=== PATIENT | male | born 1955 | race Caucasian/White ===

== ENCOUNTER 2017-10-22 15:09 | Emergency (ER) | payer MEDICARE, SELFPAY ==
[2017-10-22 15:11] VITALS: BP 161/112; PULSE 96; RESP 16; TEMP 36.3; O2SAT 98; BMI 31.5
--- NOTE | 2017-10-22 15:44 | RAD_ITS ---
STUDY: X-RAY - RIGHT ANKLE REASON FOR EXAM: Male, 62 years old. Pain, fall TECHNIQUE: 4 view(s) of the ankle. COMPARISON: None. FINDINGS: Normal visualized distal tibia and fibula. Nondisplaced fracture medial malleolus of indeterminate age. No overlying soft tissue swelling. Normal tibiotalar articulation and ankle mortise. Normal visualized talus and calcaneus. The visualized subtalar, talonavicular, calcaneocuboid and tarsal articulations are normal. The soft tissue structures are unremarkable. RAD/Ankle min 3 Views IMPRESSION: Fracture distal tip medial malleolus of indeterminate age. Electronically Signed: Amaury Felder DO at 16:09 EST , Service support ,
--- NOTE | 2017-10-22 15:56 | ED.VISSUMM ---
- ER Visit Summary Date of Service: 10/22/17 Chief Complaint: Complaining of right ankle pain after twisting his ankle coming down steps today. He denies other injuries. History of Present Illness: The patient is a 62 M 3 of alcoholism. Patient is walking up steps today twisted his right ankle. Denies any other injuries. Complaining of right lateral ankle pain. He is able to walk on it. Physical Examination: Middle-aged male no acute distress. Vital signs are stable afebrile. H EENT exam atraumatic. No signs of trauma to his face or scalp. Nontender. C-spine nontender. Trachea midline. Lungs clear to station bilaterally. Heart regular rate and rhythm no murmur. Chest wall nontender. Abdomen soft nontender. Back nontender. Spine nontender. Pelvic girdle intact. He is moving all 4 extremities. Neurovascular intact. Specifically his right hip and knee are nontender neurovascular intact with normal range of motion and no deformity. Right ankle is p.o. P mild swelling the lateral malleolus. There is no gross bony deformity. Achilles tendon is intact. He is able to dorsi plantarflex. His DP pulses intact. Medial malleolus is nontender. Foot is nontender with no deformities or swelling. Able to wiggle his toes. Normal touch sensation. Neurologically is awake and alert. No focal motor deficits. Test Results: Right ankle x-ray 3 views read by myself shows no acute abnormality. No bony fractures or dislocations. I discussed the films with the patient and he does understand that this does not rule out soft tissue injury such as a torn tendon or ligament. Emergency Department Course and Treatment: Treated as an ankle sprain. Ice and elevate. Limited Motrin for pain. Walking boot. Follow-up with orthopedics if not improving. Treatment Plan: Walking boot. Ice and elevate. Orthopedic referral. Disposition: Discharge Impression: Right ankle sprain post fall History of alcohol abuse This note was generated with [employer] dictation software. It may contain incorrect words, spelling, and punctuation that were not noted in review of the chart prior to signing ED Disposition - Plan for ED Patient: Chief Complaint: Lower Extremity Injury Referrals: Care Physician,No Primary [Primary Care Provider] -
--- NOTE | 2017-10-22 15:59 | ED.DEP ---
ED Disposition - Plan for ED Patient: Disposition: Home or Assisted Living Chief Complaint: Lower Extremity Injury Instructions: ED Sprain Ankle W X Ray, ED Alcohol Abuse Referrals: Carlton Rodrigues MD [STAFF PHYSICIAN] - 10-14 Days if not better Additional Instructions: Ice and elevate right ankle. His walking boot to get around. Tylenol and Motrin for pain. Call follow-up with Dr. Zackary Rodrigues if your ankle is not improving for further evaluation. To consider alcohol detox.
[2017-10-22] MEDS: HYDROcodone Bitartrate/Apap 5/325 Tablet PO (16:13)
[2017-10-22 16:14] VITALS: RESP 16
--- NOTE | 2017-10-22 16:14 | ED.RN ---
REVIEWED D/C INSTRUCTIONS, FOLLOW UP CARE, AND S/S THAT WOULD WARRANT A RETURN TO THE ED WITH PT AND HIS . BOTH VERBALIZED AN UNDERSTANDING AND DENY FURTHER QUESTIONS FOR THIS RN. PT SKIN P/W/D, RESP EVEN AND UNLABORED, PT A&O X 3, NO DISTRESS NOTED. PT AMBULATED OUT OF ED WITH .
== END 2017-10-22 16:15 | disposition home or self-care (01) ==
PROVIDERS: Emergency Provider Emergency Medicine
DX: S93.401A Sprain of unspecified ligament of right ankle, initial encounter (principal); X50.1XXA Overexertion from prolonged static or awkward postures, initial encounter; Y93.01 Activity, walking, marching and hiking; Y92.9 Unspecified place or not applicable; F10.10 Alcohol abuse, uncomplicated; Y90.9 Presence of alcohol in blood, level not specified; I25.2 Old myocardial infarction; Z72.0 Tobacco use
CPT/HCPCS: 73610; 99283

== ENCOUNTER 2018-03-10 08:52 | Emergency (ER) | payer MEDICARE, MEDICAID, SELFPAY ==
[2018-03-10 08:53] VITALS: BP 137/91; PULSE 91; RESP 20; TEMP 36.6; O2SAT 98; BMI 30.1
--- NOTE | 2018-03-10 09:01 | RAD_ITS ---
STUDY: X-RAY - LEFT KNEE REASON FOR EXAM: Male, 62 years old. Left knee pain. Status post fall 5 days ago. TECHNIQUE: 4 view(s) of the knee. COMPARISON: None. FINDINGS: There is demineralization of the visualized distal femur. There is demineralization of the tibia and fibula. There is arthrosis of the proximal tibiofibular articulation. There is no demonstrated fracture. There is moderate degenerative arthrosis of the medial femorotibial compartment with moderate joint space narrowing. There is mild degenerative arthrosis of the lateral femorotibial compartment. There is mild degenerative arthrosis of the patellofemoral articulation. There is a soft tissue prominence in the suprapatellar region suggesting a small volume joint effusion. Anteriorly/medially soft tissue swelling of the knee. Vascular calcifications. RAD/Knee 4 or More Views IMPRESSION: 1. No demonstrated acute osseous injury or dislocation. 2. Tricompartment osteoarthritis. 3. Small joint effusion. Mild soft tissue swelling of the knee. Electronically Signed: Benita Griffith MD at 9:43 EDT Tel , Service support ,
--- NOTE | 2018-03-10 09:53 | ED.DCSUM_ITS ---
- ER Visit Summary Date of Service: 03/10/18 Chief Complaint: Left knee pain History of Present Illness: The patient is a 62 M who states that 4 days ago he was wrestling while intoxicated and fell onto his left knee. He states that last night he was drinking and felt the urge to urinate and when he took his pants down he realized that his left knee was swollen. Then this morning he called EMS to bring him to the hospital. He states that he is in severe pain as he laughs and curses at staff. He denies any other injuries. Physical Examination: Afebrile vital signs are stable Gen: Well-nourished well-developed very unkempt Head: Normocephalic atraumatic Eyes: Perrl EOMI ENT: TMs clear no rhinorrhea moist mucous membranes Neck: Supple no lymphadenopathy no JVD nontender CVS: Regular rate rhythm no murmurs normal S1-S2 Respiratory: No distress clear to auscultation bilaterally chest nontender Abdomen: Soft nontender nondistended normal bowel sounds no masses Back: Nontender Extremity: There is ecchymosis over the medial aspect of the distal left thigh and left knee. There is apparent hematoma of the bursa. There is not appear to be a joint effusion. He has full range of motion of the knee. Skin: Normal color no rash Neuro: alert orientated ?3 CN II-XII intact normal strength sensation reflexes antalgic cerebellar Psych: Labile affect Test Results: Knee films did not demonstrate a fracture. Noted soft tissue swelling. Emergency Department Course and Treatment: Kike wrap will be used. I would recommend ice. Follow-up with orthopedics if not improving Impression: 1. Traumatic bursitis left knee This note was generated with [employer] dictation software. It may contain incorrect words, spelling, and punctuation that were not noted in review of the chart prior to signing ED Disposition - Plan for ED Patient: Disposition: Home or Assisted Living Chief Complaint: Lower Extremity Injury Instructions: ED Hematoma Prescriptions: traMADol [Ultram] 50 mg PO Q8H PRN #10 tab PRN Reason: Pain Referrals: Charbel Arambula DO [STAFF PHYSICIAN] - 1 Week if not improving
[2018-03-10 10:13] VITALS: BP 140/78; PULSE 82; RESP 18; TEMP 35.5
== END 2018-03-10 10:25 | disposition home or self-care (01) ==
PROVIDERS: Emergency Provider Emergency Medicine
DX: M71.562 Other bursitis, not elsewhere classified, left knee (principal); Z72.89 Other problems related to lifestyle
CPT/HCPCS: 73564; 99284

== ENCOUNTER 2018-07-22 14:25 | Emergency (ER) | payer MEDICARE, MEDICAID, SELFPAY ==
[2018-07-22 14:28] VITALS: BP 94/72; PULSE 88; RESP 15; TEMP 36.2; O2SAT 95; BMI 30.1
--- NOTE | 2018-07-22 14:46 | ED.RN ---
PT ARRIVED VIA EMS AND [facility]. WHILE GETTING PT UNDRESSED MULTIPLE INSECTS SEEN AND 2 CAUGHT. SOME ARE CONSISTENT WITH BED BUGS. PTS BELONGING BAGGED PER PROTOCOL.
--- NOTE | 2018-07-22 14:52 | ED.VISSUMM ---
- ER Visit Summary Date of Service: 07/22/18 Chief Complaint: Intoxication History of Present Illness: The patient is a 62 M with presumed intoxication. He is mildly agitated and it is difficult to get a good history. He was found in the yard with a bottle of rubbing alcohol. He has a history of alcoholism. When asked him if he has any pain, he points to his penis. He will not elaborate any further. He denies any head or neck pain or injuries. Denies chest pain or shortness of breath. Denies abdominal pain or GI symptoms. He has a history of alcoholic liver disease, depression, anemia, hypertension, COPD. He does smoke. Physical Examination: Blood pressure 94/72. Afebrile and otherwise vitals normal. Head and neck are grossly atraumatic. Moves all extremities. Cranial nerves grossly intact. Skin unremarkable. Heart regular. Lungs clear. Abdomen soft. inspection is normal. Patient is covered in multiple bedbugs. Test Results: We will check basic labs, tox screen, alcohol level. Emergency Department Course and Treatment: I presume that the patient is intoxicated. No evidence of trauma or an acute medical process otherwise. Will observe and check labs. Will reassess. Patient's alcohol level was only 160. His CBC was normal and his metabolic panel was normal. Anion gap normal. I reevaluated the patient. He is somnolent but arouses to painful stimuli. He says he did not take any other substances today. He continues to deny any other complaints. Denies any pain. He is borderline hypotensive but otherwise his vitals are normal. I reexamined him. No new findings. I am not sure what is causing his somnolence. I suspect he may have taken other substances. We will get a tox screen. I will also check a chest x-ray, CT brain, EKG, troponin, ABG, and urinalysis given his altered mental status with no current explanation. I reevaluated the patient. His ABG, EKG, troponin were all normal. I do not have his urine, tox screen, CT, or chest x-ray at this point. He is alert and oriented. He has no complaints. He is requesting to go. I do not feel that further testing is indicated. Patient will be discharged. Treatment Plan: As above Disposition: Discharge Impression: 1. Altered mental status This note was generated with [employer] dictation software. It may contain incorrect words, spelling, and punctuation that were not noted in review of the chart prior to signing ED Disposition - Plan for ED Patient: Chief Complaint: ETOH Intox Referrals: Care Physician,No Primary [Primary Care Provider] -
[2018-07-22 14:54] LABS: Absolute Lymphocyte Count 4.03 X10^3/ul (0.83-4.51); Absolute Neutrophil Count 4.4 X10^3/uL (2.0-7.7); Basophil# 0.07 X10^3/uL; Basophil% 0.8 % (0-1); Eosinophils% 1.1 % (0-5); Hematocrit 40.1 % (40-54); Hemoglobin 13.3 g/dl (13.0-16.5); Lymphocyte # 4.03 X10^3/ul (4.0); Lymphocyte % 43.9 % (19-41); Mean Corp Hgb Conc 33.2 g/gl (32-36); Mean Corpuscular Hgb 29.8 pg (27.0-32.0); Mean Corpuscular Volume 89.9 fL (80-94); Mean Platelet Vol. 10.3 fl (6.2-12.0); Monocyte# 0.55 X10^3/uL; Neutrophil # 4.43 X10^3/uL (2.7-7.7); Neutrophil % 48.1 % (47-70); Platelet Count 270 K/mm3 (150-450); RBC Distribution Width CV 14.5 % (11.6-14.6); RBC Distribution Width SD 47.7 fl (35.1-43.9); Red Blood Count 4.46 M/mm3 (4.6-6.2); White Blood Count 9.2 K/mm3 (4.4-11.0)
[2018-07-22 15:07] LABS: POSITIVE COUNT NO; POSITIVE DIFFERENTIAL NO; POSITIVE MORPHOLOGY NO
[2018-07-22 15:17] VITALS: BP 93/71; PULSE 96; RESP 17; O2SAT 97
--- NOTE | 2018-07-22 15:18 | ED.RN ---
pt unable to answer home medication related questions at this time will re-evaluate at a later time.
[2018-07-22 15:35] LABS: ALB/GLOB Ratio 0.9 RATIO (0.9-2.4); AST(SGOT) 26 U/L (15-37); Alanine Aminotransfer ALT/SGPT 18 U/L (16-61); Albumin, Serum 3.3 g/dL (3.2-5.0); Alkaline Phosphatase 79 U/L (45-117); Anion Gap 11 (5-15); BUN 18 mg/dL (7-18); BUN/Creat Ratio 14.2 RATIO (10-20); Calcium,Total 8.4 mg/dL (8.5-10.1); Chloride 105 mmol/L (98-107); Creatinine, Serum 1.27 mg/dL (0.70-1.30); EST Glomerular Filtration Rate 61 mL/min (>60); Est Glom Filt Rate - Afr Amer 74 mL/min (>60); Estimated Creatinine Clearance 63.07 ml/min; Globulin 3.8 g/dL (2.2-4.2); Glucose 105 mg/dL (74-106); Potassium 3.5 mmol/L (3.5-5.1); Protein, Total 7.1 g/dL (6.4-8.2); Sodium Level 141 mmol/L (136-145)
--- NOTE | 2018-07-22 15:58 | EKG12_ITS ---
Test Reason : INTOX Blood Pressure : / mmHG Vent. Rate : 093 BPM Atrial Rate : 093 BPM P-R Int : 204 ms QRS Dur : 092 ms QT Int : 402 ms P-R-T Axes : 056 -22 009 degrees QTc Int : 499 ms Normal sinus rhythm Prolonged QT Abnormal ECG Confirmed by KIN MARTINEZ, LEANDRA ([id number]), technical editor KANIKA HARE ([id number] on 07/24/2018 3:20:23 PM Referred By: DC Confirmed By:LAENDRA SANDERSON MD
[2018-07-22 16:01] VITALS: BP 96/58; PULSE 87; RESP 14; O2SAT 98
[2018-07-22 16:36] LABS: Allen Test POS; Base Excess 1 mmol/L (-2 to +2); Bicarbonate 25.7 mmol/L (22-26); Blood Gas Specimen Type ART; O2 Delivery Device Room Air; PO2 75 mmHG (75-100); SITE R Radial; SO2 95 % (95-99); Time Given 1629; Total Carbon Dioxide 27 mmol/L; pCO2 42.9 mmHg (35-45); pH 7.39 (7.35-7.45)
[2018-07-22 16:49] LABS: Mucous, Urine 0 SEEN /hpf (<or=2+); Red Blood Cells-Urine 0 SEEN /hpf (0-5); Squamous Epithelial Cells - UA 0 SEEN /hpf (0-5)
[2018-07-22 16:51] LABS: Color, Urine Yellow (Yellow); Glucose, Dipstick Normal (Normal); Ketone-Dipstick 5 mg/dl (Negative); Leukocyte Esterase-Dipstick 100 /ul (Negative); Nitrite-Dipstick Positive (Negative); Occult Blood-Urine Negative /ul (Negative); Protein-Dipstick Negative (Negative); Specific Gravity, Urine 1.015 (1.002-1.030); Urine Bilirubin Dipstick Negative (Negative); Urine Clarity Sl. Cloudy (Clear); Urine Urobilinogen Normal (Normal); Urine pH 6.5 (5.0 - 8.0)
--- NOTE | 2018-07-22 16:51 | ED.DEP ---
ED Disposition - Plan for ED Patient: Chief Complaint: ETOH Intox Instructions: ED Alcohol Intoxication
[2018-07-22 16:57] LABS: Bacteria 2+ /hpf (None Seen); White Blood Cells 0-5 SEEN /hpf (0-5)
[2018-07-22 17:06] LABS: Amphetamine Urine VISTA NEGATIVE (<1000 ng/mL); Barbiturate Urine VISTA NEGATIVE (< 200 ng/mL); Benzodiazepine Urine VISTA NEGATIVE (< 200 ng/mL); Cocaine Urine VISTA NEGATIVE (< 300 ng/mL); Ecstacy Urine VISTA NEGATIVE (< 500 ng/mL); Methadone Urine VISTA NEGATIVE (< 300 ng/mL); PCP Urine VISTA NEGATIVE (< 25 ng/mL); THC Urine VISTA NEGATIVE (< 50 ng/mL); Vista UDS pH Range 6
[2018-07-22 17:12] VITALS: BP 122/71; PULSE 86; RESP 17; O2SAT 98
[2018-07-22 18:04] VITALS: BP 122/72; PULSE 90; RESP 18; O2SAT 97
--- NOTE | 2018-07-22 18:04 | ED.RN ---
PT DRESSES SELF AND IS GIVEN WRITTEN AND VERBAL DISCHARGE INSTRUCTIONS. PT ABLE TO GIVE ADDRESS TO CALL FOR A RIDE. CAB CALLED, AND SHOULD BE PRESENT TO ED IN AN HOUR. PT IV D/C AND COVERED WITH 2X2 GAUZE DRESSING AND PAPER TAPE. PT AMBULATES OUT OF DEPT BY SELF.
--- OUTSIDE RECORDS SUMMARY | 2018-09-14 23:55 | XMS RPT_ITS ---
:1955 Author Organization [facility] Care Team Providers Name Role Phone Primay Care Physicia, No Primary Care Unavailable oYvanny Frey Attending Unavailable Primay Care Physicia, No Primary Care Unavailable Scott Michael Attending Unavailable Primay Care Physicia, No Primary Care Unavailable Scott Farnsworth Attending Unavailable PROBLEMS PROBLEMS DATE TYPE CONDITION / CODE ATTENDING STATUS SOURCE 04/15/2018 Unknown M25.562 - Pain Scott Michael Active [facility] left knee / Community M25.562(ICD-10) Hospital Repository 05/25/2018 Unknown M25.571 - Pain Yovanny Frey Active [facility] in right ankle [facility] right foot / Repository M25.571(ICD-10) PROCEDURES PROCEDURES No Procedure Records FoundRESULTS RESULTS 12 LEAD ELECTROCARDIOGRAM Observed: 07/24/2018 Status: F Source: ANNE-MARIE 3:20 PM [facility] RE[facility] Cardiovascular Services [address] [place] [address] 12 Lead EKG 07/22/18 1637 MR#: [id number] Acct: [id number] Name: DORA SIFUENTES Rep #: [id number] : 1955 62 From: Gaurav Sanderson MD Attending Dr: Status: DEP ER Ordering Dr: Scott Farnsworth MD Date: 07/22/18 Location: ED Sex: M C Admitted: Test Reason : INTOX Blood Pressure : / mmHG Vent. Rate : 093 BPM Atrial Rate : 093 BPM P-R Int : 204 ms QRS Dur : 092 ms QT Int : 402 ms P-R-T Axes : 056 -22 009 degrees QTc Int : 499 ms Normal sinus rhythm Prolonged QT Abnormal ECG Confirmed by KIN MARTINEZ, GAURAV ([id number]), art editor KANIKA HARE ([id number]) on 07/24/2018 3:20:23 PM Referred By: DC Confirmed By:GAURAV SANDERSON MD 07/24/18 1520 Date Gaurav Sanderson MD CC: No Primary Care Physician; Scott Farnsworth MD Signed DISCHARGE INSTRUCTION Observed: 07/22/2018 Status: F Source: ANNE-MARIE 4:54 PM [facility] REPOSITORY [facility] Medical Records Department [address] [place] [address] Discharge Instruction 07/22/18 165 MR#: [id number] Acct: [id number] Name: MARIADORA POLLARD Rep #: [id number] : 1955 62 From: Scott Farnsworth MD PCP: Care Physician, No Primary Status: REG ER ED Disposition - Plan for ED Patient: Chief Complaint: ETOH Intox Instructions: ED Alcohol Intoxication What to do if you have Problems For any increased pain, shortness of breath, bleeding, nausea or vomiting, chest pain, or any unexpected problems, contact your Primary Care Provider. Call [facility] ([phone]) or report to the closest Emergency Room. Call 911 if necessary. 07/22/181653 <Electronically signed by Scott Farnsworth MD> Date Scott Farnsworth MD Cosigner Signature (If Indicated): Date CC: No Primary Care Physician EMERGENCY DEPARTMENT Observed: 07/22/2018 Status: F Source: ANNE-MARIE SUMMARY 4:54 PM [facility] Medical Records Department [address] [place] [address] Emergency Department Summary 07/22/18 1452 MR#: [id number] Acct: [id number] Name: DORA SIFUENTES Rep #: [id number] : 1955 62 From: Scott Farnsworth MD PCP: Care Physician, No Primary Status: REG ER - ER Visit Summary Date of Service: 07/22/18 Chief Complaint: Intoxication History of Present Illness: The patient is a 62 M with presumed intoxication. He is mildly agitated and it is difficult to get a good history. He was found in the yard with a bottle of rubbing alcohol. He has a history of alcoholism. When asked him if he has any pain, he points to his penis. He will not elaborate any further. He denies any head or neck pain or injuries. Denies chest pain or shortness of breath. Denies abdominal pain or GI symptoms. He has a history of alcoholic liver disease, depression, anemia, hypertension, COPD. He does smoke. Physical Examination: Blood pressure 94/72. Afebrile and otherwise vitals normal. Head and neck are grossly atraumatic. Moves all extremities. Cranial nerves grossly intact. Skin unremarkable. Heart regular. Lungs clear. Abdomen soft. inspection is normal. Patient is covered in multiple bedbugs. Test Results: We will check basic labs, tox screen, alcohol level. Emergency Department Course and Treatment: I presume that the patient is intoxicated. No evidence of trauma or an acute medical process otherwise. Will observe and check labs. Will reassess. Patient's alcohol level was only 160. His CBC was normal and his metabolic panel was normal. Anion gap normal. I reevaluated the patient. He is somnolent but arouses to painful stimuli. He says he did not take any other substances today. He continues to deny any other complaints. Denies any pain. He is borderline hypotensive but otherwise his vitals are normal. I reexamined him. No new findings. I am not sure what is causing his somnolence. I suspect he may have taken other substances. We will get a tox screen. I will also check a chest x-ray, CT brain, EKG, troponin, ABG, and urinalysis given his altered mental status with no current explanation. I reevaluated the patient. His ABG, EKG, troponin were all normal. I do not have his urine, tox screen, CT, or chest x-ray at this point. He is alert and oriented. He has no complaints. He is requesting to go. I do not feel that further testing is indicated. Patient will be discharged. Treatment Plan: As above Disposition: Discharge Impression: 1. Altered mental status This note was generated with i[employer] CRM dictation software. It may contain incorrect words, spelling, and punctuation that were not noted in review of the chart prior to signing ED Disposition - Plan for ED Patient: Chief Complaint: ETOH Intox Referrals: Care Physician,No Primary [Primary Care Provider] - What to do if you have Problems For any increased pain, shortness of breath, bleeding, nausea or vomiting, chest pain, or any unexpected problems, contact your Primary Care Provider. Call [facility] ([phone]) or report to the closest Emergency Room. Call 911 if necessary. 07/22/18 9984 <Electronically signed by Scott Farnsworth MD> Date Scott Farnsworth MD Cosigner Signature (If Indicated): Date CC: No Primary Care Physician URINE DRUG SCREEN Collected: 07/22/2018 Status: F Source: ANNE-MARIE (VISTA) 4:45 PM [facility] REPOSITORY TYPE CODE TESTS RESULT OUT OF RANGE REFERENCE UNITS LAB L505.0075 TO BE Normal CONFIRMED Result Comment: CONFIRMATORY TESTING FOR ALL POSITIVE URINE DRUG SCREEN RESULTS WILL ONLY BE SENT OUT UPON PHYSICIAN ORDER. VISTA Urine Drug Screen methods provide only preliminary analytical test results. A more specific alternate chemical method must be used in order to obtain a confirmed analytical result. Gas chromatography/mass spectrometery (GC/MS) is the preferred confirmatory method. Clinical consideration and professional judgement should be applied to any drug of abuse test result, particularly when preliminary positive results are used. URINE TCA TESTING MUST BE ORDERED SEPARATELY. USE TEST MNEMONIC: [facility] LAB L505.5005 VISTA UDS PH 6 Normal LAB L505.5015 <1000 ng/mL AMPHETAMINES Normal NEGATIVE LAB L505.5025 < 200 ng/mL BARBITIURATES Normal NEGATIVE LAB L505.5035 < 200 ng/mL BENZODIAZIPINE Normal NEGATIVE LAB L505.5045 < 300 ng/mL COCAINE Normal NEGATIVE LAB L505.5055 < 500 ng/mL ECSTACY Normal NEGATIVE LAB L505.5065 < 300 ng/mL METHADONE Normal NEGATIVE LAB L505.5075 < 300 ng/mL OPIATES Normal NEGATIVE LAB L505.5085 < 25 ng/mL PCP Normal NEGATIVE LAB L505.5095 < 50 ng/mL THC Normal NEGATIVE Performed By: #### L505.5000 #### [facility] [address] [place], [address] URINALYSIS, COMPLETE Collected: 07/22/2018 Status: F Source: MUDDY 4:45 PM [facility] REPOSITORY Order Comment: How was Urine Obtained? HEATER PLANER OPERATOR TO SPECIFY TYPE CODE TESTS RESULT OUT OF RANGE REFERENCE UNITS LAB L400.3000 Yellow COLOR Normal Yellow LAB L400.3050 Clear Normal CLARITY Sl. Cloudy LAB L400.3200 Normal mg/dl Normal GLUCOSE, UR Normal LAB L400.3300 Negative mg/dL Normal BILIRUBIN URINE Negative LAB L400.3400 Negative mg/dl High 5 KETONE UR LAB L400.3465 1.002-1.030 Normal SP.GR. DIPSTX 1.015 LAB L400.3550 5.0 - 8.0 pH UR Normal 6.5 LAB L400.3600 Negative mg/dl PROT Normal DIPSTX Negative LAB L400.3700 Normal mg/dl Normal UROBILI Normal LAB L400.3750 Negative High NITRITE UR Positive LAB L400.3780 Negative /ul Normal OCCULT BLOOD-UR Negative LAB L400.3800 Negative /ul High LEUK ESTERASE 100 LAB L400.4050 0-5 /hpf WBC Normal 0-5 SEEN LAB L400.4100 0-5 /hpf 0 Normal RBC-UA SEEN LAB L400.4150 0-5 /hpf SQUAM 0 Normal EPI SEEN LAB L400.4300 None Seen /hpf 2+ Normal BACTERIA LAB L400.4350 <or=2+ /hpf 0 Normal MUCUS, URINE SEEN Performed By: #### L400.0001 #### [facility] [address] [place], [place], [address] BLOOD GASES BY CPS Collected: 07/22/2018 Status: F Source: MUDDY 4:29 PM [facility]POS[facility] TYPE CODE TESTS RESULT OUT OF RANGE REFERENCE UNITS LAB L9000.9990 Normal BLD GAS TYPE ART LAB L9001.1000 Normal SITE R Radial LAB L9001.1010 Normal NENA TEST POS LAB L9001.1050 O2 Normal Delivery Dev Room Air LAB L9001.1104 Normal Results To ED MD LAB L9001.1105 Normal Time Given 1629 LAB L9001.1110 7.35-7.45 pH Normal - I-STAT 7.39 LAB L9001.1210 35-45 mmHg Normal pCO2 - ISTAT 42.9 LAB L9001.1310 75-100 mmHG Normal PO2 I-STAT 75 LAB L9001.2300 22-26 mmol/L Normal HCO3 ISTAT 25.7 LAB L9001.2400 -2 to +2 mmol/L BE Normal ISTAT 1 LAB L9001.2415 mmol/L Normal TOTAL CO2 27 ISTAT LAB L9001.2425 95-99 % Normal SO2 ISTAT 95 Performed By: #### L9000.0800 #### [facility] Point of Care [address] [place] [address] CBC W/DIFF, AUTOMATED Collected: 07/22/2018 Status: F Source: MUDDY 2:34 PM [facility]POS[facility] TYPE CODE TESTS RESULT OUT OF RANGE REFERENCE UNITS LAB L100.1000 4.4-11.0 K/mm3 Normal WBC 9.2 LAB L100.1200 4.6-6.2 M/mm3 Low RBC 4.46 LAB L100.1300 13.0-16.5 g/dl Normal HGB 13.3 LAB L100.1400 40-54 % Normal HCT 40.1 LAB L100.1500 80-94 fL Normal MCV 89.9 LAB L100.1600 27.0-32.0 pg Normal MCH 29.8 LAB L100.1700 32-36 g/gl Normal MCHC 33.2 LAB L100.1810 11.6-14.6 % Normal RDW CV 14.5 LAB L100.1820 35.1-43.9 fl High RDW SD 47.7 LAB L100.1900 150-450 K/mm3 Normal PLT 270 LAB L100.2000 6.2-12.0 fl Normal MPV 10.3 LAB L100.2100 47-70 % Normal NEUT% 48.1 LAB L100.2200 19-41 % High LY% 43.9 LAB L100.2300 0-10 % Normal MONO% 6.0 LAB L100.2400 0-5 % Normal EO% 1.1 LAB L100.2500 0-1 % Normal BASO% 0.8 LAB L100.2550 0.0-0.9 % Normal IM GRAN % 0.100 Result Comment: IG% - Immature Granulocytes (promyelocytes, myelocytes and metamyelocytes) > 1% indicates that a LEFT SHIFT is Present. LAB L100.2620 2.0-7.7 X10 3/uL Normal Absolute Neut 4.4 LAB L100.2720 0.83-4.51 X10 3/ul Normal Absolute Lymph 4.03 Performed By: #### L100.0100 #### [facility] [address] [facility] [address] ALCOHOL, BLOOD Collected: 07/22/2018 Status: F Source: MUDDY (MEDICAL)-SERUM 2:34 PM [facility]POSITORY TYPE CODE TESTS RESULT OUT OF RANGE REFERENCE UNITS LAB L501.9100 mg/dL Normal SERUM 160.0 ETOH Result Comment: The serum:whole blood ethanol ratio is approximately 1.14 and varies slightly with hematocrit. Medical Alcohol reference interval and critical value in non-tolerant individuals; 50 - 100 Impairment 100 Intoxication 100 - 250 Severe Poisoning 250 - 400 Deep/possible fatal coma Performed By: #### L501.9100 #### [facility] [address] [place], [address] COMPREHENSIVE METABOLIC Collected: 07/22/2018 Status: F Source: MUDDY PROFIL 2:34 PM [facility] REPOSITORY TYPE CODE TESTS RESULT OUT OF RANGE REFERENCE UNITS LAB L501.0100 74-106 mg/dL Normal GLU 105 Result Comment: Fasting Glucose result from 100 to 125 mg/dL suggests IMPAIRED HOMEOSTASIS per A.D.A. criteria. Please note revised GLUCOSE reference range effective 2017. LAB L501.1000 7-18 mg/dL Normal BUN 18 LAB L501.1100 0.70-1.30 mg/dL Normal CREAT,SERUM 1.27 Result Comment: The validity of the calculated GFR AND GFRAA in patients over 70 years has not been determined. Clinical correlation is essential. LAB L501.1110 >60 mL/min Normal EST GFR 61 Result Comment: Non- GFR Calc LAB L501.1115 >60 mL/min Normal EST GFR - AA 74 Result Comment: GFR Calc LAB L501.1255 ml/min Normal Estimated CRCL 63.07 LAB L501.1300 10-20 RATIO Normal BUN/CRE 14.2 LAB L501.1500 6.4-8. g/dL Normal 2 T PROT 7.1 LAB L501.1800 3.2-5. g/dL Normal 0 ALB 3.3 LAB L501.1950 2.2-4. g/dL Normal 2 GLOB 3.8 LAB L501.2000 0.9-2. RATIO Normal 4 A/G 0.9 LAB L501.2200 8.5-10 mg/dL Low .1 CA 8.4 LAB L501.4100 15-37 U/L Normal AST 26 LAB L501.4305 45-117 U/L Normal ALK P 79 LAB L501.4405 16-61 U/L Normal ALT 18 LAB L501.4600 0.20-1 mg/dL Normal .00 T BILI 0.40 LAB L501.5300 136-14 mmol/L Normal 5 NA 141 LAB L501.5600 3.5-5. mmol/L Normal 1 K 3.5 LAB L501.5900 98-107 mmol/L Normal CL 105 LAB L501.6100 21.0-3 mmol/L Normal 2.0 CO2 25.0 LAB L501.6200 5-15 Normal GAP 11 Performed By: #### L500.4050 #### [facility] [address] [place], [address] TROPONIN-I Collected: 07/22/2018 Status: F Source: ANNE-MARIE 2:34 PM [facility]POSITORY TYPE CODE TESTS RESULT OUT OF RANGE REFERENCE UNITS LAB L501.4010 <0.045 ng/mL Normal < 0.015 TROPONIN-I Result Comment: TROPONIN-I EXPECTED VALUES <0.045 Negative 0.045 - 0.590 Consistent with Cardiac Damage > OR = 0.600 Critical Value Not every elevated troponin is indicative of LA. These values should be used with clinical judgement in examining the patient's clinical picture for diagnosis. To establish a diagnosis of LA versus myocardial injury, there must be a demonstrated rise and/or fall in the troponin values, in addition to ischemic symptoms, EKG changes, new regional wall motion abnormality, and/or angiographical evidence. PLEASE NOTE: REFERENCE RANGES EDITED 18 Performed By: #### L501.4010 #### [facility] [address] [facility] [place], [address] EMERGENCY DEPARTMENT Observed: 03/11/2018 Status: F Source: MUDDY SUMMARY 8:22 AM [facility] Medical Records Department [address] [facility] [place] [address] Emergency Department Summary 03/10/18 0944 MR#: [id number] Acct: [id number] Name: DORA SIFUENTES Rep #: [id number] : 1955 62 From: Scott Michael DO PCP: Care Physician, No Primary Status: DEP ER - ER Visit Summary Date of Service: 03/10/18 Chief Complaint: Left knee pain History of Present Illness: The patient is a 62 M who states that 4 days ago he was wrestling while intoxicated and fell onto his left knee. He states that last night he was drinking and felt the urge to urinate and when he took his pants down he realized that his left knee was swollen. Then this morning he called EMS to bring him to the hospital. He states that he is in severe pain as he laughs and curses at staff. He denies any other injuries. Physical Examination: Afebrile vital signs are stable Gen: Well-nourished well-developed very unkempt Head: Normocephalic atraumatic Eyes: Perrl EOMI ENT: TMs clear no rhinorrhea moist mucous membranes Neck: Supple no lymphadenopathy no JVD nontender CVS: Regular rate rhythm no murmurs normal S1-S2 Respiratory: No distress clear to auscultation bilaterally chest nontender Abdomen: Soft nontender nondistended normal bowel sounds no masses Back: Nontender Extremity: There is ecchymosis over the medial aspect of the distal left thigh and left knee. There is apparent hematoma of the bursa. There is not appear to be a joint effusion. He has full range of motion of the knee. Skin: Normal color no rash Neuro: alert orientated 3 CN II-XII intact normal strength sensation reflexes antalgic cerebellar Psych: Labile affect Test Results: Knee films did not demonstrate a fracture. Noted soft tissue swelling. Emergency Department Course and Treatment: Kike wrap will be used. I would recommend ice. Follow-up with orthopedics if not improving Impression: 1. Traumatic bursitis left knee This note was generated with i[employer] CRM dictation software. It may contain incorrect words, spelling, and punctuation that were not noted in review of the chart prior to signing ED Disposition - Plan for ED Patient: Disposition: Home or Assisted Living Chief Complaint: Lower Extremity Injury Instructions: ED Hematoma Prescriptions: traMADol [Ultram] 50 mg PO Q8H PRN #10 tab PRN Reason: Pain Referrals: Charbel Arambula DO [STAFF PHYSICIAN] - 1 Week if not improving What to do if you have Problems For any increased pain, shortness of breath, bleeding, nausea or vomiting, chest pain, or any unexpected problems, contact your Primary Care Provider. Call [facility] ([phone]) or report to the closest Emergency Room. Call 911 if necessary. 03/11/18 08 <Electronically signed by Scott Michael DO> Date Scott Michael DO Cosigner Signature (If Indicated): Date CC: No Primary Care Physician KNEE 4 OR MORE Observed: 03/10/2018 Status: F Source: ANNE-MARIE PEARL 9:01 AM [facility] Imaging Services [address] [place] [address] Knee 4 or More Views MR#: [id number] Acct: [id number] Name: DORA SIFUENTES Rep #: [id number] : 1955 M 62 From: Camron Griffith PCP: Care Physician, No Primary Status: REG ER Study: Knee 4 or More Views Date of Exam: 03/10/18 Exam# [id number] Ordering Dr: Scott Michael DO STUDY: X-RAY - LEFT KNEE REASON FOR EXAM: Male, 62 years old. Left knee pain. Status post fall 5 days ago. TECHNIQUE: 4 view(s) of the knee. COMPARISON: None. FINDINGS: There is demineralization of the visualized distal femur. There is demineralization of the tibia and fibula. There is arthrosis of the proximal tibiofibular articulation. There is no demonstrated fracture. There is moderate degenerative arthrosis of the medial femorotibial compartment with moderate joint space narrowing. There is mild degenerative arthrosis of the lateral femorotibial compartment. There is mild degenerative arthrosis of the patellofemoral articulation. There is a soft tissue prominence in the suprapatellar region suggesting a small volume joint effusion. Anteriorly/medially soft tissue swelling of the knee. Vascular calcifications. RAD/Knee 4 or More Views IMPRESSION: 1. No demonstrated acute osseous injury or dislocation. 2. Tricompartment osteoarthritis. 3. Small joint effusion. Mild soft tissue swelling of the knee. Electronically Signed: Benita Griffith MD at 9:43 EDT Tel , Service support , CC: No Primary Care Physician; Scott Michael DO Speed Belt Sander Tender: Signed EMERGENCY DEPARTMENT Observed: 10/22/2017 Status: F Source: MUDDY SUMMARY 10:57 PM [facility] Medical Records Department [address] [place] [address] Emergency Department Summary 10/22/17 1556 MR#: [id number] Acct: [id number] Name: DORA SIFUENTES Rep #: [id number] : 1955 62 From: Yovanny Frey MD PCP: Care Physician, No Primary Status: DEP ER - ER Visit Summary Date of Service: 10/22/17 Chief Complaint: Complaining of right ankle pain after twisting his ankle coming down steps today. He denies other injuries. History of Present Illness: The patient is a 62 M 3 of alcoholism. Patient is walking up steps today twisted his right ankle. Denies any other injuries. Complaining of right lateral ankle pain. He is able to walk on it. Physical Examination: Middle-aged male no acute distress. Vital signs are stable afebrile. H EENT exam atraumatic. No signs of trauma to his face or scalp. Nontender. C-spine nontender. Trachea midline. Lungs clear to station bilaterally. Heart regular rate and rhythm no murmur. Chest wall nontender. Abdomen soft nontender. Back nontender. Spine nontender. Pelvic girdle intact. He is moving all 4 extremities. Neurovascular intact. Specifically his right hip and knee are nontender neurovascular intact with normal range of motion and no deformity. Right ankle is p.o. P mild swelling the lateral malleolus. There is no gross bony deformity. Achilles tendon is intact. He is able to dorsi plantarflex. His DP pulses intact. Medial malleolus is nontender. Foot is nontender with no deformities or swelling. Able to wiggle his toes. Normal touch sensation. Neurologically is awake and alert. No focal motor deficits. Test Results: Right ankle x-ray 3 views read by myself shows no acute abnormality. No bony fractures or dislocations. I discussed the films with the patient and he does understand that this does not rule out soft tissue injury such as a torn tendon or ligament. Emergency Department Course and Treatment: Treated as an ankle sprain. Ice and elevate. Limited Motrin for pain. Walking boot. Follow-up with orthopedics if not improving. Treatment Plan: Walking boot. Ice and elevate. Orthopedic referral. Disposition: Discharge Impression: Right ankle sprain post fall History of alcohol abuse This note was generated with Dragon dictation software. It may contain incorrect words, spelling, and punctuation that were not noted in review of the chart prior to signing ED Disposition - Plan for ED Patient: Chief Complaint: Lower Extremity Injury Referrals: Care Physician,No Primary [Primary Care Provider] - What to do if you have Problems For any increased pain, shortness of breath, bleeding, nausea or vomiting, chest pain, or any unexpected problems, contact your Primary Care Provider. Call [facility] ([phone]) or report to the closest Emergency Room. Call 911 if necessary. 10/22/172256 <Electronically signed by Yovanny Frey MD> Date Yovanny Frey MD Cosigner Signature (If Indicated): Date CC: No Primary Care Physician DISCHARGE INSTRUCTION Observed: 10/22/2017 Status: F Source: MUDDY 10:57 PM [facility] Medical Records Department [address] [place] [address] Discharge Instruction 10/22/17 1559 MR#: [id number] Acct: [id number] Name: DORA SIFUENTES Rep #: [id number] : 1955 62 From: Yovanny Frey MD PCP: Care Physician, No Primary Status: [facility] [place] [facility] ED Disposition - Plan for ED Patient: Disposition: Home or Assisted Living Chief Complaint: Lower Extremity Injury Instructions: ED Sprain Ankle W X Ray, ED Alcohol Abuse Referrals: Carlton Rodrigues MD [STAFF PHYSICIAN] - 10-14 Days if not better Additional Instructions: Ice and elevate right ankle. His walking boot to get around. Tylenol and Motrin for pain. Call follow-up with Dr. Zackary Rodrigues if your ankle is not improving for further evaluation. To consider alcohol detox. What to do if you have Problems For any increased pain, shortness of breath, bleeding, nausea or vomiting, chest pain, or any unexpected problems, contact your Primary Care Provider. Call [facility] ([phone]) or report to the closest Emergency Room. Call 911 if necessary. 10/22/17 2254 <Electronically signed by Yovanny Frey MD> Date Yovanny Frey MD Cosigner Signature (If Indicated): Date CC: No Primary Care Physician ANKLE MIN 3 VIEWS Observed: 10/22/2017 Status: F Source: MUDDY 3:44 PM [facility] Imaging Services [address] [place] [address] Ankle min 3 Views MR#: [id number] Acct: [id number] Name: DORA SIFUENTES Rep #: [id number] : 1955 M 62 From: Amaury Felder PCP: Care Physician, No Primary Status: REG ER Study: Ankle min 3 Views Date of Exam: 10/22/17 Exam# [id number] Ordering Dr: Yovanny Frey MD STUDY: X-RAY - RIGHT ANKLE REASON FOR EXAM: Male, 62 years old. Pain, fall TECHNIQUE: 4 view(s) of the ankle. COMPARISON: None. FINDINGS: Normal visualized distal tibia and fibula. Nondisplaced fracture medial malleolus of indeterminate age. No overlying soft tissue swelling. Normal tibiotalar articulation and ankle mortise. Normal visualized talus and calcaneus. The visualized subtalar, talonavicular, calcaneocuboid and tarsal articulations are normal. The soft tissue structures are unremarkable. RAD/Ankle min 3 Views IMPRESSION: Fracture distal tip medial malleolus of indeterminate age. Electronically Signed: Amauryjohn FelderDO at 16:09 EST , Service support , CC: No Primary Care Physician; Yovanny Frey MD Speed Belt Sander Tender: Signed ALLERGIES ALLERGIES DATE TYPE / CODE NAME / CODE REACTION SEVERITY SOURCE 05/30/2017 Drug codeine/F006 [facility] [id number]([place] [id number]([facility]) Repository CT) 05/30/2017 Drug aspirin/F006 Nausea/Vom/Diarr Unknown [facility] Allergy/4160 [id number]([place] [address]([facility]) Repository CT) ENCOUNTERS ENCOUNTERS ADMIT/DISCHARGE ACCOUNT ADMITTING ENCOUNTER LOCATION SOURCE NUMBER CLASS 07/22/2018/ [id number] Emergency [address] ing:ED Repository 03/10/2018/ [id number] Emergency [address] ing:ED Repository 10/22/2017/ [id number] Emergency [address] ing:ED Repository PAYERS PAYERS ENCOUNTER GUARANTOR PAYER SUBSCRIBER SOURCE 07/22/2018 DORA SENIOR [facility] DORA Matthews [place] [address], Insurance:MEDICARE [facility]: Critical access hospital [id number]: PART A [facility] [id number] Hospital Number: Repository () [id number] Date:2018-07-22 07/22/2018 Secondary DORA M [place] [facility] Number: [id number] Hospital [id number] Repository Date:2018-07-22 07/22/2018 Tertiary NOT GIVENUNK Anne[place]Marie Insurance:SELF PAY [facility] Number: Effective Repository Date:2018-07-22 03/10/2018 DORA SENIOR Primary DORA Matthews [place] [address], Insurance[id number] [id number]: PART A [facility] [id number] Hospital Number: Repository () [id number] Date:2018-03-10 03/10/2018 Secondary DORA Xie Insurance:MEDICAIDPol LEDFORDDOB: Community [place] Number: [id number] Hospital [id number] Repository Date:2018-03-10 03/10/2018 Tertiary NOT GIVENUNK Anne-Marie Insurance:SELF PAY [facility] Number: Effective Repository Date:2018-03-10 10/22/2017 DORA SIFUENTESPO Primary DORA Xie [address], Insurance:MEDICARE [place]: [place] [address]Rzs: PART A BPolicy [id number] Hospital Number: Repository () [id number] Date:2017-10-22 10/22/2017 Secondary NOT GIVENUNK [place] Insurance:SELF PAY [facility] Number: Effective Repository Date:2017-10-22
== END 2018-07-22 18:06 | disposition home or self-care (01) ==
PROVIDERS: Emergency Provider Emergency Medicine
DX: R41.82 Altered mental status, unspecified (principal); F10.229 Alcohol dependence with intoxication, unspecified; Y90.9 Presence of alcohol in blood, level not specified; K70.9 Alcoholic liver disease, unspecified; F32.9 Major depressive disorder, single episode, unspecified; D64.9 Anemia, unspecified; I10 Essential (primary) hypertension; J44.9 Chronic obstructive pulmonary disease, unspecified; Z72.0 Tobacco use
CPT/HCPCS: 36600; 80053; 80307; 80320; 81001; 82803; 84484; 85025; 93005; 99285; A4216; G0480

== ENCOUNTER 2018-09-25 11:50 | Emergency (ER) | payer MEDICARE, MEDICAID, SELFPAY ==
[2018-09-25 11:51] VITALS: BP 139/108; PULSE 102; RESP 18; TEMP 36.6; O2SAT 98; BMI 29.2
--- NOTE | 2018-09-25 12:14 | CT_ITS ---
STUDY: CT ABDOMEN AND PELVIS WITHOUT CONTRAST REASON FOR EXAM: Male, 63 years old. Scrotal pain. Ethanol abuse. RADIATION DOSAGE (If Supplied By Facility): CTDIvol = ( 12.95 ) mGy, DLP = ( 643.69 ) mGycm TECHNIQUE: Transaxial images were obtained from the dome of the diaphragm to the symphysis pubis without oral contrast, and without intravenous contrast. Sagittal and coronal images were reconstructed. Individualized dose optimization techniques were used for this CT. COMPARISON: Comparison is made with prior study dated January 31, 2013. FINDINGS: The visualized lung bases are unremarkable. Healed left rib fractures. The visualized portions of the heart are within normal limits. Normal liver. Normal gallbladder and extrahepatic biliary system. Normal spleen. Normal pancreas. Normal bilateral adrenal glands. Normal right kidney. Normal left kidney. There is a small hiatal hernia. Normal small intestine. There is diverticulosis, with thickening of the colon wall, and pericolonic inflammation changes consistent with acute diverticulitis. Radiographic follow-up is recommended to rule out possible underlying mass. The appendix is visualized and appears normal. There is diffuse atherosclerotic calcification of the abdominal aorta, without a demonstrated aneurysm. Normal inferior vena cava. Normal retroperitoneum. Normal urinary bladder. There are prostatic calcifications. Small bilateral benign-appearing inguinal lymph nodes. Normal abdominal wall. There are mild degenerative changes of the visualized lumbar spine. CT/Abdomen/Pelvis without Cont IMPRESSION: Findings suggestive of a noncomplicated acute sigmoid diverticulitis with increased markings and thickening in the region of the sigmoid colon. Radiographic follow-up is recommended. Electronically Signed: Lan Groves MD at 13:38 EST , Service support ,
[2018-09-25 12:16] VITALS: BP 131/115; PULSE 95; RESP 16; O2SAT 96
--- NOTE | 2018-09-25 12:25 | ED.RN ---
pt arrived to ed stating i drank a lot to kill the pain. pt has hx of aggression and verbal abuse towards staff. pt was escorted by security in the department. pt placed in the bed and a detailed explanation of plan of care was given. dr arrived and had an at length discussion of plan of care with pt as well. pt is currently resting in bed and cooperating. mykel soto, rn [phone]
--- NOTE | 2018-09-25 12:30 | ED.RN ---
pt very verbally abusive in triage. pt yelled at this rn and came up out of the chair. pt backed down. became aggressive a second time. agrees to drinking large amount of etoh. security called
[2018-09-25 12:44] LABS: Absolute Lymphocyte Count 2.26 X10^3/ul (0.83-4.51); Basophil# 0.05 X10^3/uL; Basophil% 0.6 % (0-1); Eosinophil# 0.08 X10^3/uL; Hematocrit 40.6 % (40-54); Hemoglobin 13.3 g/dl (13.0-16.5); Lymphocyte # 2.26 X10^3/ul (4.0); Lymphocyte % 27.9 % (19-41); Mean Corp Hgb Conc 32.8 g/gl (32-36); Mean Corpuscular Volume 88.5 fL (80-94); Monocyte# 0.69 X10^3/uL; Monocyte% 8.5 % (0-10); Neutrophil % 61.8 % (47-70); Platelet Count 234 K/mm3 (150-450); RBC Distribution Width CV 15.9 % (11.6-14.6); RBC Distribution Width SD 51.5 fl (35.1-43.9); Red Blood Count 4.59 M/mm3 (4.6-6.2); White Blood Count 8.1 K/mm3 (4.4-11.0)
[2018-09-25 12:45] LABS: POSITIVE COUNT NO; POSITIVE DIFFERENTIAL NO; POSITIVE MORPHOLOGY NO
[2018-09-25 12:56] LABS: Anion Gap 9 (5-15); BUN 12 mg/dL (7-18); BUN/Creat Ratio 11.2 RATIO (10-20); Calcium,Total 8.1 mg/dL (8.5-10.1); Chloride 108 mmol/L (98-107); Creatinine, Serum 1.07 mg/dL (0.70-1.30); EST Glomerular Filtration Rate 74 mL/min (>60); Est Glom Filt Rate - Afr Amer 90 mL/min (>60); Estimated Creatinine Clearance 76.24 ml/min; Glucose 82 mg/dL (74-106); Potassium 3.3 mmol/L (3.5-5.1); Sodium Level 142 mmol/L (136-145)
[2018-09-25 13:11] LABS: Lactic Acid 1.7 mmol/L (0.4-2.0)
--- NOTE | 2018-09-25 14:01 | ED.DCSUM_ITS ---
- ER Visit Summary Date of Service: 09/25/18 Chief Complaint: [Abdominal pain] History of Present Illness: The patient is a 63 M [resents the emergency room with complaint of abdominal pain that started over a month ago. Patient states that he could not take the pain anymore despite drinking heavily. Patient comes in via EMS for evaluation. Patient believes that he may have a hernia as his pain is in the left lower quadrant and has pain radiating towards the testicle at times. He has had no fever. He has had not had any vomiting. Patient states he has no medical history and does not take any medications. He does not have a primary care physician.] Physical Examination: [HEENT-PERRLA, EOMI. Cranial nerves II through XII grossly intact. TMs clear. Mucous membranes moist. No adenopathy. Cardiovascular-regular rate and rhythm without murmur or ectopy Lungs-clear to auscultation, chest wall stable without crepitus or subcu emphysema Abdomen-normoactive bowel sounds, soft. Patient has tenderness palpation over left lower quadrant with some guarding. There is no rebound, rigidity, or peritoneal signs. Extremities-intact ?4, normal range of motion, normal pulses, atraumatic] Test Results: [CBC with differential obtained showed a white count of 8.1, hemoglobin 13, hematocrit 41, placed 234. Chemistries unremarkable other than slightly depressed potassium at 3.3. Lactate was normal at 1.7. Alcohol was elevated at 355. CT scan of the abdomen and pelvis showed acute uncomplicated diverticulitis of the sigmoid colon.] Emergency Department Course and Treatment: [Patient eloped from the emergency department prior to completion of his exams and salts of his exams.] Treatment Plan: [We will attempt to contact the patient as I feel he needs to be on antibiotics. I do not feel he needs to be hospitalized for this. Patient also advised that he will need to avoid alcohol.] Disposition: [Patient left prior to treatment completion] Impression: [Acute diverticulitis of the sigmoid colon] This note was generated with [employer] dictation software. It may contain incorrect words, spelling, and punctuation that were not noted in review of the chart prior to signing ED Disposition - Plan for ED Patient: Referrals: Care Physician,No Primary [Primary Care Provider] -
--- NOTE | 2018-09-25 14:01 | ED.DEP ---
ED Disposition - Plan for ED Patient: Instructions: ED Diverticulitis Prescriptions: Amox/Clavulanate Tablet [Augmentin Tablet] 875 mg PO Q12H #20 tab Referrals: Care Physician,No Primary [Primary Care Provider] - Ismael Funes MD [STAFF PHYSICIAN] - 3-5 Days
--- NOTE | 2018-09-25 14:23 | ED.RN ---
CT SCAN SHOWS THAT PATIENT HAS ACUTE DIVERTICULITIS. DR. HARRIS STATES THAT PATIENT WILL NEED TO BE PLACED ON ANTIBIOTICS AND DISCHARGE INSTRUCTIONS WOULD BE AVAILABLE HERE OR COULD CALL THE ANTIBIOTICS INTO A PHARMACY. PATIENT CALLED ON TELEPHONE NUMBER THAT HE HAS ON FILE AND STATES THAT IT CANNOT ACCEPT CALLS FROM THIS NUMBER. SOCIAL WORK MADE AWARE.
--- NOTE | 2018-09-25 14:35 | CM.ED ---
JAVA DEVELOPMENT TEAM LEAD NOTE UPDATED BY NURSING, PT ELOPED. PT CT SHOWED ACUTE DIVERTICULITIS AND NEEDING ANTIBIOTICS. NURSING ATTEMPTED TO CALL PT ALONG WITH THIS WORKER. NUMBER STATES CANNOT ACCEPT CALLS FROM THIS NUMBER. CALL TO PT'S EMERGENCY CONTACT. NUMBER STATES UNABLE TO ACCEPT CALLS. UPDATED NURSING. ROLY LI, PCB DESIGN ENGINEER, CROWN ATTACHER.
--- NOTE | 2018-09-25 14:51 | ED.RN ---
no patient found in room. blood found on floor and IV found in trash can. catheter and dressing intact. belonging takens . bathrooms and waiting area check for individual. not presently in er. dr carr and security informed that patient eloped. mykel soto rn [phone]
== END 2018-09-25 14:55 | disposition left against medical advice (07) ==
LOC: ED 13:08
PROVIDERS: Emergency Provider Emergency Medicine
DX: K57.32 Diverticulitis of large intestine without perforation or abscess without bleeding (principal); Z72.89 Other problems related to lifestyle; Z72.0 Tobacco use
CPT/HCPCS: 74176; 80048; 80320; 83605; 85025; 99283; G0480

== ENCOUNTER 2018-12-06 22:06 | Emergency (ER) | payer MEDICARE, MEDICAID, SELFPAY ==
[2018-12-06] VITALS (28 sets, daily range): BP systolic 70–130; BP diastolic 52–77; PULSE 79–104; RESP 14–23; TEMP 36.1–37.3; O2SAT 69–93; BMI 28.8
[2018-12-06] MEDS: 0.9% Normal Saline 1,000 ML 1000 ML IV (22:17)
--- NOTE | 2018-12-06 22:18 | EKG12_ITS ---
Test Reason : CODE Blood Pressure : / mmHG Vent. Rate : 099 BPM Atrial Rate : 099 BPM P-R Int : 166 ms QRS Dur : 116 ms QT Int : 320 ms P-R-T Axes : 059 -10 076 degrees QTc Int : 410 ms Normal sinus rhythm Right bundle branch block Nonspecific T Wave Abnormality Abnormal ECG Confirmed by KIN MARTINEZ, LEANDRA ([id number]), scientific editor SABINA GLEZ ([id number]) on 12/10/2018 10:32:16 AM Referred By: MELANIE Confirmed By:LEANDRA SANDERSON MD
--- NOTE | 2018-12-06 22:30 | RAD_ITS ---
STUDY: X-RAY CHEST REASON FOR EXAM: Male, 63 years old. ET tube placement. TECHNIQUE: Single AP portable view of the chest. COMPARISON: None. FINDINGS: Endotracheal tube overlies the mid trachea occipital a 3.7 cm from the keiry. EG tube travels through the GE junction with tip overlying the mid stomach. Prominent interstitial markings with low lung volume and basilar atelectasis is present. Overlying patchy airspace disease and interstitial edema is not excluded. There is no demonstrated pleural abnormality. There is mild cardiac enlargement. Normal mediastinum and antoine. Prominent pulmonary vascularity is noted. Normal visualized aortic arch and descending thoracic aorta. Normal visualized thoracic spine. Normal visualized ribs, clavicles, and shoulders. There is no demonstrated abnormality of the visualized soft tissue structures of the upper abdomen. RAD/Chest 1 View (Portable) IMPRESSION: 1. Endotracheal tube within the mid trachea 3.7 cm from the keiry. NG tube tip overlies mid stomach. 2. Low lung volume with prominent interstitial markings and pulmonary vascularity is above. Electronically Signed: Victor Hugo Blanca DO at 22:45 EDT , Service support ,
--- NOTE | 2018-12-06 22:32 | CT_ITS ---
STUDY: CT BRAIN WITHOUT CONTRAST REASON FOR EXAM: Male, 63 years old. Altered mental status. Pain and vomiting patient unresponsive and receiving CPR upon arrival. RADIATION DOSAGE (If Supplied By Facility): CTDIvol = ( 44.99 ) mGy, DLP = ( 931.09 ) mGycm TECHNIQUE: Transaxial CT imaging of the brain was performed without administration of intravenous contrast material. Individualized dose optimization techniques were used for this CT. COMPARISON: May 26, 2017. FINDINGS: The endotracheal tube and orogastric tube within the oral cavity. Soft tissues are grossly unremarkable. Normal calvarium. There is mild cerebral atrophy with widening of the extra-axial spaces and ventricular dilatation. Normal white matter tracts of the cerebral hemispheres. Normal basal ganglia and thalami. Normal brainstem. Normal cerebellum. There is no intracranial hemorrhage. There are no findings of an acute ischemic infarction. Normal visualized paranasal sinuses. CT/Brain/Head without Contrast IMPRESSION: 1. Chronic involutional changes without evidence of acute intracranial or calvarial abnormality. There is no major interval change. 2. Endotracheal tube and orogastric tube as described. Electronically Signed: Del De Jesus DO at 23:42 EDT Tel [phone], Service support ,
--- NOTE | 2018-12-06 22:32 | CT_ITS ---
STUDY: CT ABDOMEN AND PELVIS WITHOUT CONTRAST REASON FOR EXAM: Male, 63 years old. Pain and vomiting. Altered mental status. History of hypertension and liver disease and alcoholism. RADIATION DOSAGE (If Supplied By Facility): CTDIvol = ( 22.22 ) mGy, DLP = ( 1265.53 ) mGycm TECHNIQUE: Transaxial images were obtained from the dome of the diaphragm to the symphysis pubis without oral contrast, and without intravenous contrast. Sagittal and coronal images were reconstructed. Individualized dose optimization techniques were used for this CT. COMPARISON: CT of the abdomen and pelvis, September 25, 2018. FINDINGS: There are bilateral infiltrates at the posterior lung bases. The visualized portions of the heart are within normal limits. There is an NG tube within a distended esophagus. Normal liver. Normal gallbladder and extrahepatic biliary system. Normal spleen. Normal pancreas. Normal bilateral adrenal glands. Normal right kidney. Normal left kidney. The thyroid activity is collapsed about the tip of the NG tube. Loops of small bowel throughout the abdomen. There is marked gaseous distention of the colon from the cecum to the sigmoid. There is questionable pneumatosis of the cecum and ascending colon villar. There appears to be diverticuli in the sigmoid colon with wall thickening. The possibility of a mass or inflammatory change cannot be completely ruled out. Normal appendix. There is diffuse atherosclerotic calcification of the abdominal aorta, without a demonstrated aneurysm. Normal inferior vena cava. Normal retroperitoneum. Urinary bladder is collapsed about a Gaines catheter. Normal prostate. There is no pelvic lymphadenopathy. There is diffuse ascites. There is free air beneath the anterior abdominal wall. Normal abdominal wall. Lumbar spine. CT/Abdomen/Pelvis without Cont IMPRESSION: 1. Free air and free fluid within the peritoneal cavity. 2. Marked distention of the colon to the level of the sigmoid with questionable pneumatosis of the cecum and ascending colon. 3. Inflammatory process versus mass involving the rectosigmoid colon. 4. Bibasilar infiltrates. Question aspiration. 5. Gaines catheter. 6. No other major interval change. N.B. : The above information has been verbally conveyed by Del De Jesus DO to Scott Farnsworth MD, on 12/06/2018 23:51:10 (ET). Electronically Signed: Del De Jesus DO at 23:51 EDT Tel [phone], Service support ,
[2018-12-06 22:40] LABS: International Normalized Ratio 1.5; Prothrombin Time (Protime)PT. 18.2 SECONDS (11.7-14.9)
[2018-12-06 22:41] LABS: Absolute Lymphocyte Count 2.63 X10^3/ul (0.83-4.51); Absolute Neutrophil Count 4.9 X10^3/uL (2.0-7.7); Basophil# 0.07 X10^3/uL; Basophil% 0.8 % (0-1); Eosinophil# 0.02 X10^3/uL; Eosinophils% 0.2 % (0-5); Hematocrit 38.7 % (40-54); Hemoglobin 12.3 g/dl (13.0-16.5); Lymphocyte # 2.63 X10^3/ul (4.0); Lymphocyte % 29.5 % (19-41); Mean Corp Hgb Conc 31.8 g/gl (32-36); Mean Corpuscular Hgb 28.9 pg (27.0-32.0); Mean Corpuscular Volume 90.8 fL (80-94); Mean Platelet Vol. 10.1 fl (6.2-12.0); Monocyte# 1.21 X10^3/uL; Monocyte% 13.5 % (0-10); Neutrophil # 4.94 X10^3/uL (2.7-7.7); Neutrophil % 55.3 % (47-70); Partial Thromboplast Time 49.7 Seconds (24.1-36.2); Platelet Count 221 K/mm3 (150-450); RBC Distribution Width CV 16.1 % (11.6-14.6); RBC Distribution Width SD 52.9 fl (35.1-43.9); Red Blood Count 4.26 M/mm3 (4.6-6.2); White Blood Count 8.9 K/mm3 (4.4-11.0)
[2018-12-06 22:44] LABS: Differential Indicated SCAN CRITERIA MET; POSITIVE COUNT NO; POSITIVE DIFFERENTIAL NO; POSITIVE MORPHOLOGY YES
--- NOTE | 2018-12-06 22:50 | CM.ED ---
SOCIAL WORK THIS WORKER RESPONDED TO CODE BLUE. EMOTIONAL SUPPORT AND EDUCATION PROVIDED TO FAMILY IN ED WAITING ROOM. ROLY LI, AREA RELIEF PILOT, SUBMARINE DIVER.
[2018-12-06 22:51] LABS: ALB/GLOB Ratio 0.6 RATIO (0.9-2.4); AST(SGOT) 254 U/L (15-37); Alanine Aminotransfer ALT/SGPT 78 U/L (16-61); Albumin, Serum 2.2 g/dL (3.2-5.0); Alkaline Phosphatase 117 U/L (45-117); Anion Gap 26 (5-15); BUN 35 mg/dL (7-18); BUN/Creat Ratio 13.2 RATIO (10-20); Calcium,Total 7.7 mg/dL (8.5-10.1); Chloride 82 mmol/L (98-107); Creatinine, Serum 2.65 mg/dL (0.70-1.30); EST Glomerular Filtration Rate 26 mL/min (>60); Est Glom Filt Rate - Afr Amer 32 mL/min (>60); Globulin 3.5 g/dL (2.2-4.2); Glucose 82 mg/dL (74-106); Potassium 3.2 mmol/L (3.5-5.1); Protein, Total 5.7 g/dL (6.4-8.2); Sodium Level 137 mmol/L (136-145)
[2018-12-06 23:21] LABS: Differential Comment SCANNED
[2018-12-06] MEDS: 0.9% Normal Saline 1,000 ML 999 ML IV (23:25)
--- NOTE | 2018-12-06 23:43 | ED.RN ---
2207 NO PULSE. CPR STARTED. MONITOR PEA
[2018-12-06 23:47] LABS: Lactic Acid 17.5 mmol/L (0.4-2.0)
--- NOTE | 2018-12-06 23:50 | ED.RN ---
Dr Farnsworth notified of lactic of 17.5
[2018-12-07] VITALS: BP 92/64; PULSE 88; RESP 23; O2SAT 95
--- NOTE | 2018-12-07 00:03 | CPS ---
critical values read back to Dr. Farnsworth
[2018-12-07 00:11] LABS: Base Excess -3 mmol/L (-2 to +2); Bicarbonate 25.8 mmol/L (22-26); Blood Gas Specimen Type ART; FI02 100; Mode A-C; O2 Delivery Device Vent; PEEP 10; PO2 89 mmHG (75-100); RR 16; SITE R Radial; SO2 93 % (95-99); Total Carbon Dioxide 28 mmol/L; Vt 522; pCO2 73.1 mmHg (35-45); pH 7.16 (7.35-7.45)
[2018-12-07] MEDS: 0.9% Normal Saline 1,000 ML IV.SOLN. 2000 ML IV (00:25)
--- NOTE | 2018-12-07 00:25 | ED.VISSUMM ---
- ER Visit Summary Date of Service: 12/07/18 Chief Complaint: Full arrest History of Present Illness: The patient is a 63 M who was brought in by EMS. The patient has a history of seizures, hypertension, COPD, liver disease, alcoholism, and anemia. He is a smoker and drinks daily. No drug use. He was brought in by EMS as a full arrest. Per his family, he has been having abdominal pain and distention as well as vomiting today. He was also weak when he was walking around. Prior to arrival, he went unresponsive. He had a shaking episode. 911 was called. Police arrived on scene. He had CPR performed. He received Narcan. EMS arrived next. They continued CPR. He was given a dose of epinephrine and bicarb. Supraglottic airway device was placed. He had a return of spontaneous circulation. He was brought immediately to the ED. He had been down for almost 30 minutes before he arrived. Patient is unresponsive and so no further history was obtained from the patient. Physical Examination: Patient is cyanotic. Emesis in his airway. Supraglottic device in place. No pulse. Abdomen very distended. Test Results: See below Emergency Department Course and Treatment: Patient arrives by EMS. He was found to have no pulse. CPR was resumed. He was treated with epinephrine and did have a return of his pulse. Initial blood pressure was 130/77 and heart rate was 104. Endotracheal intubation was performed by me. This was successful. He had good color change and equal breath sounds. Condensation was noted. He was started on capnography and was in the mid 40s. He had 2 IVs placed. Fluid resuscitation was started. His EKG showed sinus rhythm at a rate of 99 with a right bundle branch block pattern. No sign of ischemia or infarction. He was placed on a monitor and vent. I did order ice packs. He was not breathing over the vent and did not require sedation. Hemoglobin 12.3. Potassium 3.2. Chloride 82. CO2 29. Anion gap 26. BUN 35 and creatinine 2.65. ALT 78 and AST of 254. Coags unremarkable. Troponin indeterminate 0.066. Lactate 17. PH was 7.15. O2 89. Tox screen and urinalysis pending. He had no urine output on his Gaines catheter. Chest x-ray showed good placement of his endotracheal tube. He had low lung volumes. He was sent for CT brain and abdomen pelvis. Brain showed chronic changes. Abdomen and pelvis showed distention of his colon with pneumatosis of the ascending colon and free air. There appears to be a rectosigmoid mass which is likely inflammatory. This was not there in September. This was discussed with radiology. I spoke with our surgeon here, Dr. Fournier. The patient is too critical to be treated surgically here. She advised transfer to a tertiary center. Family requested [facility]. There were no critical care beds available. I suggested [facility]. They were agreeable. I spoke with Dr. Blanca. He was concerned that the patient might not survive the transfer. I voiced this to the family and the patient significant other. They would still like him transferred. I advised that he may not recover from his medical issues, and they would still like him transferred. They would like him to be full code and that is consistent with his wishes. Patient had continued fluid resuscitation. He was maintained on the vent. He had Zosyn started. He did require levophed to keep his map at 65. Patient was not able to be transferred by helicopter secondary to weather, so critical care ground transportation was contacted. Patient will be transferred. Treatment Plan: As above. Disposition: Transfer. Impression: 1. Cardiac arrest 2. Abdominal free air and pneumatosis 3. Respiratory failure This note was generated with [employer] dictation software. It may contain incorrect words, spelling, and punctuation that were not noted in review of the chart prior to signing ED Disposition - Plan for ED Patient: Referrals: Care Physician,No Primary [Primary Care Provider] -
--- NOTE | 2018-12-07 00:34 | ED.RN ---
UNABLE TO VERIFY MEDS OR ALLERGIES
[2018-12-07 00:43] VITALS: BP 80/39; PULSE 92; RESP 22; O2SAT 91
[2018-12-07 01:00] VITALS: BP 80/70; PULSE 91; RESP 22; O2SAT 91
[2018-12-07] MEDS: 0.9% Normal Saline 1,000 ML 999 ML IV (01:30)
[2018-12-07 01:39] VITALS: BP 90/57; PULSE 91; RESP 23; TEMP 36.2; O2SAT 91
--- NOTE | 2018-12-07 01:40 | ED.RN ---
CLOTHING CUT OFF AND SOILED. NOT SENT WITH FAMILY
== END 2018-12-07 01:30 | disposition short-term general hospital (02) ==
PROVIDERS: Emergency Provider Emergency Medicine
DX: I46.9 Cardiac arrest, cause unspecified (principal); K66.8 Other specified disorders of peritoneum; K63.89 Other specified diseases of intestine; J96.91 Respiratory failure, unspecified with hypoxia; F10.20 Alcohol dependence, uncomplicated; K70.9 Alcoholic liver disease, unspecified; Y90.9 Presence of alcohol in blood, level not specified; F17.200 Nicotine dependence, unspecified, uncomplicated
CPT/HCPCS: 31500; 31720; 36600; 51702; 70450; 71045; 74176; 80053; 80320; 82803; 83605; 84484; 85025; 85610; 85730; 92950; 93005; 94002; 94770; 96365; 99285; J7030; A4216; G0480